=== PATIENT | male | born 1985 | race Caucasian/White ===

== ENCOUNTER 2016-10-26 05:16 | Emergency (ER) | payer OTHER ==
[~2016-10-26] VITALS: Ht 175.3 cm; Wt 113.4 kg
[~2016-10-26 05:16] MED LIST: CIPRO500 MG PO; FLAGYL500 MG PO; IBUPROFEN800 MG PO; NIACIN500 M1 PO; NORCO 5-325 TA1 EACH PO; PEPTO-BISMOL262 M1 PO; PROTONIX40 MG PO; SUMATRIPTAN SUC25 MG PO; ZOFRAN ODT8 MG PO; ZOFRAN4 MG PO
[2016-10-26] MEDS ORDERED: SOMA350 MG PO (06:33)
[2016-10-26] MEDS ORDERED: NAPROXEN500 MG PO (06:34)
== END 2016-10-26 06:43 | disposition home or self-care (01) ==
LOC: ED 05:16
DX: M54.41 Lumbago with sciatica, right side (principal); E78.00 Pure hypercholesterolemia, unspecified; F17.200 Nicotine dependence, unspecified, uncomplicated
CPT/HCPCS: 73502; 96372; 99283; J1885

== ENCOUNTER 2016-11-12 20:00 | Emergency (ER) | payer OTHER ==
[~2016-11-12] VITALS: Ht 175.3 cm; Wt 113.4 kg
--- OUTSIDE RECORDS SUMMARY | ~2016-11-12 | XMS ---
Demographics + + + | Address | [address] | | | [place] [address] | + + + | Preferred Language | Unknown | + + + | Marital Status | Unknown | + + + | Episcopalian Affiliation | Unknown | + + + | Race | Unknown | + + + | Ethnic Group | Unknown | + + + Author + + + | Author | [facility] | + + + | Organization | [facility] | + + + | Address | [address] | | | [place] [address] | + + + | Phone | | + + + Care Team Providers + + + + | Care Organic Preparation Technician Name | Role | Phone | + + + + Unavailable | Unavailable | + + + + PROBLEMS +---------+ + + +--------+ + + | Type | Condition | ICD9-CM | [id number] | Onset | Condition | SNOMED | [...] | 786.59 | | | Active | [id number] | | | of | | | | | | | | uncertain | | | | | | | | etiology | | | | | | +---------+ + + +--------+ + + | Problem | Breast | 611.71 | | | Active | [id number] | | | tenderness | | | | | | | | in male | | | | | | +---------+ + + +--------+ + + | Problem | Headache | 784.0 | | | Active | 08151189 | +---------+ + + +--------+ + + | Problem | Gastroente | | K52.9 | | Active | 51653866 | | | ritis | | | | | | +---------+ + + +--------+ + + | Problem | Inflammato | K63.89 | | | Active | 82876812 | | | ry bowel | | | | | | | | disease | | | | | | +---------+ + + +--------+ + + | Problem | Hyperlipid | 272.4 | | | Active | 09142520 | | | emia | | | | | | +---------+ + + +--------+ + + | Problem | Hyperlipid | 272.4 | | | Active | 97127669 | | | emia LDL | | | | | | | | goal < 130 | | | | | | +---------+ + + +--------+ + + | Problem | Hyperlipid | | E78.5 | | Active | 71753803 | | | emia | | | | | | +---------+ + + +--------+ + + | Problem | Tobacco | 305.1 | | | Active | 76066003 | | | abuse | | | | | | +---------+ + + +--------+ + + ALLERGIES + + + + +---------+ | Substance | Reaction | Event Type | Date | Status | + + + + +---------+ | N.K.D.A. | Unknown | Non Drug | Oct, | Unknown | | | | Allergy | | | + + + + +---------+ SOCIAL HISTORY No smoking Hx information available PLAN OF CARE + +---------+ | Activity | Details | + +---------+ +---+ | | +---+ + + + | Follow Up | 4 Weeks Reason:null | + + + VITAL SIGNS + + + + | Height | 68.5 in | 2016-11-07 | + + + + | Weight | 268.8 lbs | 2016-11-07 | + + + + | BMI | 40.27 kg/m2 | 2016-11-07 | + + + + | Temperature | 98.0 degrees Fahrenheit | 2016-11-07 | + + + + | Heart Rate | 100 /min | 2016-11-07 | + + + + | Blood pressure systolic | 150 mm Hg | 2016-11-07 | + + + + | Blood pressure diastolic | 102 mm Hg | 2016-11-07 | + + + + MEDICATIONS + + + + +--------+ + +--------+ | Medicati | Instruct | Dosage | Frequenc | Start | End Date | Duration | Status | | on | ions | | y | Date | | | | + + + + +--------+ + +--------+ | PredniSO | Orally | 6 tabs | 24h | | | 6 day(s) | Active | | NE 10 mg | Once a | today, 5 | | | | | | | | day | tabs | | | | | | | | | day 2, 4 | | | | | | | | | tabs | | | | | | | | | day 3, 3 | | | | | | | | | t | | | | | | + + + + +--------+ + +--------+ RESULTS No Results PROCEDURES + + + + + | Procedure | Date Ordered | Related Diagnosis | Body Site | + + + + + | Est Level III | November 07, 2016 | | | | Intermediate | | | | + + + + + | [facility]RG MED/CURRENT | November 07, 2016 | | | | MED MERGE | | | | + + + + + | DOC MEDS VERIFIED | November 07, 2016 | | | | W/PT OR RE | | | | + + + + + IMMUNIZATIONS No Known Immunizations"
[~2016-11-12 20:00] MED LIST changes: +NAPROXEN500 MG PO; +SOMA350 MG PO
[2016-11-12] MEDS ORDERED: PREDNISONE10 MG PO (20:11)
== END 2016-11-12 22:56 | disposition home or self-care (01) ==
LOC: ED 20:00
DX: G43.909 Migraine, unspecified, not intractable, without status migrainosus (principal); E78.00 Pure hypercholesterolemia, unspecified; F17.200 Nicotine dependence, unspecified, uncomplicated; Z79.52 Long term (current) use of systemic steroids
CPT/HCPCS: 96361; 96374; 99282; J1885; J7030

== ENCOUNTER 2017-05-20 20:23 | Emergency (ER) | payer OTHER ==
[~2017-05-20] VITALS: Ht 175.3 cm; Wt 121.6 kg
[~2017-05-20 20:23] MED LIST changes: +PREDNISONE10 MG PO
--- OUTSIDE RECORDS SUMMARY | 2017-05-20 20:34 | XMS ---
Demographics + + + | Address | [address] | | | [place] [address] | + + + | Preferred Language | Unknown | + + + | Marital Status | Unknown | + + + | Baptism Affiliation | Unknown | + + + | Race | Unknown | + + + | Ethnic Group | Unknown | + + + Author + + + | Author | [facility] | + + + | Organization | [facility] | + + + | Address | [address] | | | [place] [address] | + + + | Phone | | + + + Care Team Providers + + + + | Care Bankruptcy Law Specialist Name | Role | Phone | + + + + Unavailable | Unavailable | + + + + PROBLEMS +---------+ + + +--------+ + + | Type | Condition | ICD9-CM | [id number] | Onset | Condition | SNOMED | | | | Code | Code | Dates | Status | Code | +---------+ + + +--------+ + + | 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, | | | | | | | | continuous | | | | | | +---------+ + + +--------+ + + | Problem | Chest pain | 786.59 | | | Active | 82397939 | | | of | | | | | | | | uncertain | | | | | | | | etiology | | | | | | +---------+ + + +--------+ + + | Problem | Breast | 611.71 | | | Active | 44553275 | | | tenderness | | | | | | | | in male | | | | | | +---------+ + + +--------+ + + | Problem | Headache | 784.0 | | | Active | 67987883 | +---------+ + + +--------+ + + | Problem | Gastroente | | K52.9 | | Active | 87891052 | | | ritis | | | | | | +---------+ + + +--------+ + + | Problem | Inflammato | K63.89 | | | Active | 30452741 | | | ry bowel | | | | | | | | disease | | | | | | +---------+ + + +--------+ + + | Problem | Hyperlipid | 272.4 | | | Active | 49652399 | | | emia | | | | | | +---------+ + + +--------+ + + | Problem | Hyperlipid | 272.4 | | | Active | 07973890 | | | emia LDL | | | | | | | | goal < 130 | | | | | | +---------+ + + +--------+ + + | Problem | Hyperlipid | | E78.5 | | Active | 52234595 | | | emia | | | | | | +---------+ + + +--------+ + + | Problem | Tobacco | 305.1 | | | Active | 94548471 | | | abuse | | | | | | +---------+ + + +--------+ + + ALLERGIES + + + + +---------+ | Substance | Reaction | Event Type | Date | Status | + + + + +---------+ | N.K.D.A. | Unknown | Non Drug | Nov, | Unknown | | | | Allergy | | | + + + + +---------+ SOCIAL HISTORY No smoking Hx information available PLAN OF CARE + +---------+ | Activity | Details | + +---------+ +---+ | | +---+ + + + | Follow Up | 3 Months Reason:null | + + + | Pending Test | Comp. Metabolic Panel (14) | + + + | Pending Test | Lipid Panel | + + + VITAL SIGNS + + + + | Height | 68.5 in | 2016-12-12 | + + + + | Weight | 270.4 lbs | 2016-12-12 | + + + + | BMI | 40.51 kg/m2 | 2016-12-12 | + + + + | Heart Rate | 92 /min | 2016-12-12 | + + + + | Blood pressure systolic | 147 mm Hg | 2016-12-12 | + + + + | Blood pressure diastolic | 74 mm Hg | 2016-12-12 | + + + + MEDICATIONS + + + + + + + +--------+ | Medicati | Instruct | Dosage | Frequenc | Start | End Date | Duration | Status | | on | ions | | y | Date | | | | + + + + + + + +--------+ | Niacin | Orally | 1 | 24h | | | | Active | | Flush | Once a | capsule | | | | | | | Free 500 | day | | | | | | | | MG | | | | | | | | + + + + + + + +--------+ | Meloxica | Orally | 1 tablet | 24h | Nov, | 19 Mar, | 30 | Active | | m 15 MG | Once a | | | 2016 | 2016 | day(s) | | | | day | | | | | | | + + + + + + + +--------+ RESULTS No Results PROCEDURES + + + + + | Procedure | Date Ordered | Related Diagnosis | Body Site | + + + + + | Est Level IV | Dec 12, 2016 | | | | Extended | | | | + + + + + | [facility] MED/CURRENT | Dec 12, 2016 | | | | MED MERGE | | | | + + + + + | DOC MEDS VERIFIED | Dec 12, 2016 | | | | W/PT OR RE | | | | + + + + + IMMUNIZATIONS No Known Immunizations"
--- OUTSIDE RECORDS SUMMARY | 2017-05-20 20:34 | XMS ---
Demographics + + + | Address | [address] | | | [place] [address] | + + + | Preferred Language | Unknown | + + + | Marital Status | Unknown | + + + | Muslim Affiliation | Unknown | + + + | Race | Unknown | + + + | Ethnic Group | Unknown | + + + Author + + + | Author | [facility] | + + + | Organization | [facility] | + + + | Address | [address] | | | [place] [address] | + + + | Phone | | + + + Care Team Providers + + + + | Care Revenue Specialist Name | Role | Phone | + + + + Unavailable | Unavailable | + + + + PROBLEMS +---------+ + + +--------+ + + | Type | Condition | ICD9-CM | [id number] | Onset | Condition | SNOMED | [...] | 786.59 | | | Active | [id number] | | | of | | | | | | | | uncertain | | | | | | | | etiology | | | | | | +---------+ + + +--------+ + + | Problem | Breast | 611.71 | | | Active | 91771433 | | | tenderness | | | | | | | | in male | | | | | | +---------+ + + +--------+ + + | Problem | Headache | 784.0 | | | Active | 58474085 | +---------+ + + +--------+ + + | Problem | Gastroente | | K52.9 | | Active | 14787445 | | | ritis | | | | | | +---------+ + + +--------+ + + | Problem | Inflammato | K63.89 | | | Active | 80675702 | | | ry bowel | | | | | | | | disease | | | | | | +---------+ + + +--------+ + + | Problem | Hyperlipid | 272.4 | | | Active | 09058406 | | | emia | | | | | | +---------+ + + +--------+ + + | Problem | Hyperlipid | 272.4 | | | Active | 04601933 | | | emia LDL | | | | | | | | goal < 130 | | | | | | +---------+ + + +--------+ + + | Problem | Hyperlipid | | E78.5 | | Active | 83016388 | | | emia | | | | | | +---------+ + + +--------+ + + | Problem | Tobacco | 305.1 | | | Active | 73393592 | | | abuse | | | | | | +---------+ + + +--------+ + + ALLERGIES No Information SOCIAL HISTORY Never Assessed PLAN OF CARE VITAL SIGNS MEDICATIONS + + + + + + + +--------+ | Medicati | Instruct | Dosage | Frequenc | Start | End Date | Duration | Status | | on | ions | | y | Date | | | | + + + + + + + +--------+ | Lovastat | Orally | 1 tablet | 24h | Nov, | | 30 | Active | | in 10 mg | Once a | with a | | 2016 | | day(s) | | | | day | meal | | | | | | + + + + + + + +--------+ RESULTS No Results PROCEDURES No Known procedures IMMUNIZATIONS No Known Immunizations MEDICAL (GENERAL) HISTORY + + +------+ | Type | Description | Date | + + +------+ | Medical History | hyperlipidemia | | + + +------+ | Surgical History | colonoscopy | | + + +------+"
[2017-05-20] MEDS ORDERED: GABAPENTIN300 MG PO (20:45)
[2017-05-20] MEDS ORDERED: MOBIC15 MG PO (20:45)
[2017-05-20] MEDS ORDERED: LOVASTATIN10 MG PO (20:45)
== END 2017-05-20 23:20 | disposition home or self-care (01) ==
LOC: ED 20:23
DX: R51 Headache (principal); F17.200 Nicotine dependence, unspecified, uncomplicated; E78.00 Pure hypercholesterolemia, unspecified; Z79.899 Other long term (current) drug therapy
CPT/HCPCS: 96374; 99282; J1885